=== PATIENT | male | born 1950 | race Caucasian/White ===

== ENCOUNTER 2018-01-07 15:19 | Emergency (ER) | payer MEDICARE ==
[2018-01-07] MEDS ORDERED: Adacel Vial IM ONE ×2 (15:32→15:39)
--- NOTE | 2018-01-07 15:37 | ERPHSYRPT ---
- History of Present Illness Time Seen by Provider: 01/07/18 15:31 Source: patient Exam Limitations: no limitations Physician History: The patient is a 67-year-old male complaining of hitting his left lower leg on a piece of metal on a trailer, causing a skin tear to the front lower portion of his lower left leg. It was bleeding. The bleeding has stopped by the time he arrived. He denies numbness or tingling. His past medical history is significant for DVT, hypertension, and GERD. His past tetanus vaccination was more than 5 years. Timing/Duration: today Quality: other (bleeding) Severity: moderate Location: other (left leg) Possible Causes: other (trauma) Associated Symptoms: denies symptoms Allergies/Adverse Reactions: No Known Drug Allergies Allergy (Unverified 01/07/18 15:32) Home Medications: Oxybutynin Chloride Xl 5 mg [Ditropan XL 5 MG] 5 mg PO DAILY 01/07/18 [ History] Pravastatin Sodium [Pravastatin Sodium] 40 mg PO DAILY 01/07/18 [History] Warfarin Sodium [Warfarin Sodium] 4 mg PO DAILY 01/07/18 [History] - Review of Systems Constitutional: No Fever, No Chills Eyes: No Symptoms Ears, Nose, & Throat: No Symptoms Respiratory: No Cough, No Dyspnea Cardiac: No Chest Pain, No Edema, No Syncope Abdominal/Gastrointestinal: No Abdominal Pain, No Nausea, No Vomiting, No Diarrhea Genitourinary Symptoms: No Dysuria Musculoskeletal: No Back Pain, No Neck Pain Skin: Other (skin tear) Neurological: No Dizziness, No Focal Weakness, No Sensory Changes Psychological: No Symptoms Endocrine: No Symptoms Hematologic/Lymphatic: No Symptoms Immunological/Allergic: No Symptoms All Other Systems: Reviewed and Negative - Physical Exam General Appearance: no apparent distress, alert Eye Exam: PERRL/EOMI, eyes nml inspection Ears, Nose, Throat Exam: normal ENT inspection, pharynx normal, moist mucous membranes Neck Exam: normal inspection, non-tender, supple, full range of motion Respiratory Exam: normal breath sounds, lungs clear, No respiratory distress Cardiovascular Exam: regular rate/rhythm, normal heart sounds Gastrointestinal/Abdomen Exam: soft, mass, No tenderness Rectal Exam: not done Back Exam: normal inspection, normal range of motion, No CVA tenderness, No vertebral tenderness Extremity Exam: normal inspection, normal range of motion Neurologic Exam: alert, oriented x 3, cooperative, normal mood/affect, sensation nml, No motor deficits Skin Exam: laceration (5.5 X 4.0 cm skin tear to distal anterior aspect left lower leg.) SpO2 Interpretation: normal Oxygen Delivery: Room Air - Departure Time of Disposition: 15:37 Departure Disposition: Home Clinical Impression: Skin tear of left lower leg without complication Condition: Stable Critical Care Time: No Additional Instructions: You have a skin tear to your left lower leg that was repaired with Steri- Strips. Allow the Steri-Strips to come off on their own. This may take at least one week. You were given a tetanus vaccination in the ER. Take Keflex 500 mg 3 times a day for 10 days. Follow-up with your primary care doctor as needed. Prescriptions: Cephalexin [Keflex] 500 mg PO TID #30 capsule
[2018-01-07 15:59] VITALS: BP 124/75; PULSE 62; O2SAT 94
== END 2018-01-07 15:59 | disposition home or self-care (01) ==
LOC: ED 15:19
DX: S81.812A Laceration without foreign body, left lower leg, initial encounter (principal); W22.8XXA Striking against or struck by other objects, initial encounter; Z86.718 Personal history of other venous thrombosis and embolism; Z79.01 Long term (current) use of anticoagulants
CPT/HCPCS: 90471; 90715; 99283